=== PATIENT | female | born 1980 | race Caucasian/White ===

== ENCOUNTER 2017-03-14 19:28 | Emergency (ER) | payer BC ==
[~2017-03-14] VITALS: Ht 167.6 cm; Wt 88.5 kg
[2017-03-14 19:28] VITALS: BP 118/68; PULSE 83; RESP 20; TEMP 98.4; O2SAT 100
--- NOTE | 2017-03-14 20:05 | NUR ---
Patient to ER bed 1 to gown for evaluation. Side rails up.
--- NOTE | 2017-03-14 20:10 | NUR ---
Patient alert and oriented x 4. Came in the ER accompanied by family member with complaints of stabbing pain which started around 2-3pm then got worse. Left side of abdomen very tender to touch, denies nausea, vomiting or diarrhea. Denies headache or fever. No acute distress or SOB noted.
--- NOTE | 2017-03-14 20:11 | NUR ---
ER Dr. Zazueta at bedside examining patient.
[2017-03-14 20:12] LABS: BILIRUBIN,URINE NEGATIVE (NEGATIVE); BLOOD, URINE NEGATIVE (NEGATIVE); CLARITY/URINE CLEAR (CLEAR); COLOR,URINE YELLOW (YELLOW); GLUCOSE,URINE NEGATIVE (NEGATIVE); KETONES,URINE NEGATIVE (NEGATIVE); LEUKOCYTE ESTERASE ,URINE 1+ (NEGATIVE); NITRITE, URINE NEGATIVE (NEGATIVE); PROTEIN URINE NEGATIVE (NEGATIVE); UROBILINOGEN,URINE 0.2 (0.2-1.0)
[2017-03-14] MEDS ORDERED: MORPHINE 4 MG/ML INJ. SYRINGE IVP ONE ×2 (20:15→22:00)
[2017-03-14] MEDS ORDERED: NACL 0.9% 1,000 ML IV ONE (20:15)
[2017-03-14] MEDS ORDERED: KETOROLAC TROMETHAMINE 30 MG VIAL IVP ONE (20:15)
[2017-03-14 20:18] LABS: BACTERIA,URINE FEW /HPF (None Seen); MUCUS,URINE None Seen /LPF (None Seen); RBC,URINE NONE SEEN /HPF (0-3)
[2017-03-14 20:57] LABS: BASOPHILS # (AUTO) 0.1 K/uL (0.0-0.2); BASOPHILS % (AUTO) 0.8 % (0.0-2.0); EOSINOPHILS # (AUTO) 0.1 K/uL (0.0-0.4); EOSINOPHILS % (AUTO) 1.5 % (0.0-4.0); HEMATOCRIT 37.2 % (36-48); HEMOGLOBIN 12.5 g/dL (12.0-16.0); LYMPHOCYTES # (AUTO) 2.4 K/uL (1.0-5.5); LYMPHOCYTES % (AUTO) 24.9 % (20.5-51.5); MEAN CORPUSCULAR HEMOGLOBIN 31 pg (27-31); MEAN CORPUSCULAR HGB CONC 34 % (32-36); MEAN CORPUSCULAR VOLUME 92 fL (79.0-98.0); MONOCYTES # (AUTO) 0.6 K/uL (0.0-1.0); MONOCYTES % (AUTO) 6.8 % (1.7-9.3); NEUTROPHILS # (AUTO) 6.3 K/uL (1.8-7.7); PLATELET COUNT (AUTO) 192 K/uL (130-430); RED BLOOD CELL COUNT(AUTO) 4.04 MIL/uL (4.2-6.2); WHITE BLOOD COUNT (AUTO) 9.5 K/uL (4.8-10.8)
[2017-03-14] MEDS ORDERED: cefTRIAXone 1 GM IVPB PREMIX 50 ML IV ONE (21:30)
[2017-03-14 21:43] LABS: ALBUMIN 3.5 g/dL (3.4-4.8); CALCIUM 8.2 mg/dL (8.4-11.0); CREATININE 0.99 mg/dL (0.55-1.30); POTASSIUM 3.8 mmol/L (3.5-5.1); TOTAL BILIRUBIN 0.2 mg/dL (0.0-1.0); TOTAL PROTEIN, SERUM 6.7 g/dL (6.4-8.3)
--- NOTE | 2017-03-14 21:50 | NUR ---
Pt complaining of pain 5/10 at left flank side. VS stable. Will notfiy Dr. Zazueta about Pt's pain level.
[2017-03-14 23:07] VITALS: BP 117/65; PULSE 81; RESP 18; TEMP 98.1; O2SAT 99
--- NOTE | 2017-03-14 23:07 | NUR ---
Patient given written and verbal discharge instructions and verbalizes understanding. ER MD discussed with patient the results and treatment provided. Patient in stable condition. No acute distress or SOB noted upon discharge. ID arm band removed. IV catheter removed intact and dressing applied, no active bleeding. Rx of Cipro and Tramadol given. Patient educated on pain management and to follow up with PMD. Pain Scale 0/10. Opportunity for questions provided and answered.
== END 2017-03-14 23:07 | disposition home or self-care (01) ==
LOC: SED 19:28
DX: N39.0 Urinary tract infection, site not specified (principal); Z85.41 Personal history of malignant neoplasm of cervix uteri; Z91.02 Food additives allergy status; Z88.8 Allergy status to other drugs, medicaments and biological substances; Z90.710 Acquired absence of both cervix and uterus
CPT/HCPCS: 36415; 74176; 80053; 81000; 81025; 85025; 87086; 96361; 96365; 96375; 96376; 99285; J0696; J1885; J2270; J7030

== ENCOUNTER 2017-03-16 22:35 | Emergency (ER) | payer BC ==
[~2017-03-16] VITALS: Ht 167.6 cm; Wt 88.5 kg
[2017-03-16 22:40] VITALS: BP_SYST 120
[2017-03-16 23:04] LABS: BILIRUBIN,URINE NEGATIVE (NEGATIVE); BLOOD, URINE NEGATIVE (NEGATIVE); CLARITY/URINE CLEAR (CLEAR); COLOR,URINE YELLOW (YELLOW); GLUCOSE,URINE NEGATIVE (NEGATIVE); KETONES,URINE NEGATIVE (NEGATIVE); LEUKOCYTE ESTERASE ,URINE TRACE (NEGATIVE); NITRITE, URINE NEGATIVE (NEGATIVE); PH,URINE 6.5 (5.0-8.0); PROTEIN URINE NEGATIVE (NEGATIVE); UROBILINOGEN,URINE 0.2 (0.2-1.0)
[2017-03-16] MEDS ORDERED: NACL 0.9% 1,000 ML IV ONE (23:15)
[2017-03-16] MEDS ORDERED: KETOROLAC TROMETHAMINE 30 MG VIAL IVP ONE (23:15)
[2017-03-16 23:24] LABS: BACTERIA,URINE FEW /HPF (None Seen); MUCUS,URINE None Seen /LPF (None Seen); RBC,URINE 0-3 /HPF (0-3)
[2017-03-16 23:52] LABS: CALCIUM 8.6 mg/dL (8.4-11.0); CREATININE 0.87 mg/dL (0.55-1.30); POTASSIUM 3.8 mmol/L (3.5-5.1)
[2017-03-16 23:55] LABS: BASOPHILS % (AUTO) 0.6 % (0.0-2.0); EOSINOPHILS # (AUTO) 0.1 K/uL (0.0-0.4); EOSINOPHILS % (AUTO) 1.7 % (0.0-4.0); HEMATOCRIT 38.6 % (36-48); HEMOGLOBIN 12.8 g/dL (12.0-16.0); LYMPHOCYTES # (AUTO) 1.9 K/uL (1.0-5.5); LYMPHOCYTES % (AUTO) 29.7 % (20.5-51.5); MEAN CORPUSCULAR HEMOGLOBIN 31 pg (27-31); MEAN CORPUSCULAR HGB CONC 33 % (32-36); MEAN CORPUSCULAR VOLUME 93 fL (79.0-98.0); MONOCYTES # (AUTO) 0.4 K/uL (0.0-1.0); PLATELET COUNT (AUTO) 184 K/uL (130-430); RED BLOOD CELL COUNT(AUTO) 4.17 MIL/uL (4.2-6.2); RED CELL DISTRIBUTION WIDTH 12.8 % (9.0-15.0); WHITE BLOOD COUNT (AUTO) 6.4 K/uL (4.8-10.8)
[2017-03-16 23:57] LABS: ALBUMIN 3.8 g/dL (3.4-4.8); TOTAL BILIRUBIN 0.2 mg/dL (0.0-1.0); TOTAL PROTEIN, SERUM 7.2 g/dL (6.4-8.3)
[2017-03-17 00:39] VITALS: BP_SYST 104
== END 2017-03-17 00:39 | disposition home or self-care (01) ==
LOC: SED 22:35
DX: N23 Unspecified renal colic (principal); N39.0 Urinary tract infection, site not specified; F41.9 Anxiety disorder, unspecified; Z85.41 Personal history of malignant neoplasm of cervix uteri; Z88.6 Allergy status to analgesic agent; Z91.02 Food additives allergy status; R51 Headache
CPT/HCPCS: 36415; 80053; 81000; 81025; 85025; 87086; 96361; 96374; 99283; J1885; J7030

== ENCOUNTER 2018-01-29 14:19 | Emergency (ER) | payer BC, OTHER ==
[~2018-01-29] VITALS: Ht 167.6 cm; Wt 83.9 kg
[2018-01-29 14:28] VITALS: BP_SYST 91
[2018-01-29] MEDS ORDERED: ONDANSETRON HCL 4 MG/2 ML VIAL IVP ONE ×2 (14:45→16:45)
[2018-01-29] MEDS ORDERED: MORPHINE 4 MG/ML INJ. SYRINGE IVP ONE ×2 (14:45→16:45)
[2018-01-29] MEDS ORDERED: NACL 0.9% 1,000 ML IV ONE (14:45)
[2018-01-29 15:16] LABS: BASOPHILS % (AUTO) 0.4 % (0.0-2.0); EOSINOPHILS # (AUTO) 0.1 K/uL (0.0-0.4); EOSINOPHILS % (AUTO) 1.7 % (0.0-4.0); HEMATOCRIT 36.1 % (36-48); HEMOGLOBIN 12.5 g/dL (12.0-16.0); LYMPHOCYTES # (AUTO) 1.8 K/uL (1.0-5.5); LYMPHOCYTES % (AUTO) 27.8 % (20.5-51.5); MEAN CORPUSCULAR HEMOGLOBIN 31 pg (27-31); MEAN CORPUSCULAR HGB CONC 35 % (32-36); MEAN CORPUSCULAR VOLUME 91 fL (79.0-98.0); MONOCYTES # (AUTO) 0.5 K/uL (0.0-1.0); MONOCYTES % (AUTO) 7.6 % (1.7-9.3); NEUTROPHILS % (AUTO) 62.5 % (40.0-70.0); PLATELET COUNT (AUTO) 222 K/uL (130-430); RED BLOOD CELL COUNT(AUTO) 3.98 MIL/uL (4.2-6.2); RED CELL DISTRIBUTION WIDTH 12.4 % (9.0-15.0); WHITE BLOOD COUNT (AUTO) 6.4 K/uL (4.8-10.8)
[2018-01-29 15:30] LABS: INR 0.9 (0.8-1.2); PROTHROMBIN TIME 9.4 SECS (9.5-12.5)
[2018-01-29 15:32] LABS: CALCIUM 8.8 mg/dL (8.4-11.0); CREATININE 0.77 mg/dL (0.55-1.30)
[2018-01-29 15:37] LABS: ALBUMIN 3.7 g/dL (3.4-4.8); TOTAL BILIRUBIN 0.3 mg/dL (0.0-1.0)
[2018-01-29 15:51] LABS: BILIRUBIN,URINE NEGATIVE (NEGATIVE); BLOOD, URINE NEGATIVE (NEGATIVE); CLARITY/URINE CLEAR (CLEAR); COLOR,URINE YELLOW (YELLOW); GLUCOSE,URINE NEGATIVE (NEGATIVE); KETONES,URINE NEGATIVE (NEGATIVE); LEUKOCYTE ESTERASE ,URINE NEGATIVE (NEGATIVE); NITRITE, URINE NEGATIVE (NEGATIVE); PROTEIN URINE NEGATIVE (NEGATIVE); UROBILINOGEN,URINE 0.2 (0.2-1.0)
[2018-01-29 17:40] VITALS: BP_SYST 105
== END 2018-01-29 17:40 | disposition home or self-care (01) ==
LOC: SED 14:19
DX: R10.12 Left upper quadrant pain (principal); R53.83 Other fatigue; Z85.41 Personal history of malignant neoplasm of cervix uteri; Z90.710 Acquired absence of both cervix and uterus; Z88.8 Allergy status to other drugs, medicaments and biological substances; Z91.018 Allergy to other foods
CPT/HCPCS: 36415; 74176; 80053; 81003; 83690; 85025; 85610; 96361; 96374; 96375; 96376; 99285; J2270; J2405; J7030

== ENCOUNTER 2018-02-21 09:29 | Inpatient (IN) | payer OTHER ==
[~2018-02-21] VITALS: Ht 167.6 cm; Wt 85.8 kg
[2018-02-21 09:41] VITALS: BP_SYST 115
[2018-02-21] MEDS ORDERED: NACL 0.9% 1,000 ML IV ONE ×2 (10:00→12:30)
[2018-02-21] MEDS ORDERED: MORPHINE 4 MG/ML INJ. SYRINGE IVP ONE (10:00)
[2018-02-21] MEDS ORDERED: DIPHENHYDRAMINE INJ 50 MG/ML VIAL IVP ONE (10:00)
[2018-02-21 10:20] LABS: BASOPHILS % (AUTO) 0.4 % (0.0-2.0); EOSINOPHILS # (AUTO) 0.1 K/uL (0.0-0.4); EOSINOPHILS % (AUTO) 1.7 % (0.0-4.0); HEMATOCRIT 38.8 % (36-48); HEMOGLOBIN 13.3 g/dL (12.0-16.0); LYMPHOCYTES # (AUTO) 1.8 K/uL (1.0-5.5); LYMPHOCYTES % (AUTO) 29.2 % (20.5-51.5); MEAN CORPUSCULAR HEMOGLOBIN 31 pg (27-31); MEAN CORPUSCULAR HGB CONC 34 % (32-36); MEAN CORPUSCULAR VOLUME 90 fL (79.0-98.0); MONOCYTES # (AUTO) 0.4 K/uL (0.0-1.0); MONOCYTES % (AUTO) 7.2 % (1.7-9.3); NEUTROPHILS # (AUTO) 3.7 K/uL (1.8-7.7); NEUTROPHILS % (AUTO) 61.5 % (40.0-70.0); PLATELET COUNT (AUTO) 203 K/uL (130-430); RED CELL DISTRIBUTION WIDTH 12.4 % (9.0-15.0)
[2018-02-21 10:27] LABS: CALCIUM 9.3 mg/dL (8.4-11.0); CREATININE 0.73 mg/dL (0.55-1.30); POTASSIUM 3.8 mmol/L (3.5-5.1)
[2018-02-21 10:32] LABS: TOTAL BILIRUBIN 0.5 mg/dL (0.0-1.0)
[2018-02-21 10:47] LABS: BILIRUBIN,URINE NEGATIVE (NEGATIVE); BLOOD, URINE NEGATIVE (NEGATIVE); CLARITY/URINE CLEAR (CLEAR); COLOR,URINE YELLOW (YELLOW); GLUCOSE,URINE NEGATIVE (NEGATIVE); KETONES,URINE NEGATIVE (NEGATIVE); LEUKOCYTE ESTERASE ,URINE NEGATIVE (NEGATIVE); NITRITE, URINE NEGATIVE (NEGATIVE); PH,URINE 5.5 (5.0-8.0); PROTEIN URINE NEGATIVE (NEGATIVE); UROBILINOGEN,URINE 0.2 (0.2-1.0)
[2018-02-21] MEDS ORDERED: ONDANSETRON HCL 4 MG/2 ML VIAL IVP ONE ×3 (11:00→13:46)
[2018-02-21] MEDS ORDERED: MAG HYDROX/AL HYDROX/SIMETH 30 ML, BELLADONNA ALKALOIDS/PHENOBARB 10 ML, LIDOCAINE VISC... PO ONE ×3 (11:00)
[2018-02-21] MEDS ORDERED: AMPICILLIN SODIUM/SULBACTAM NA 3 GM VIAL IM ONE (12:30)
[2018-02-21] MEDS ORDERED: ACETAMINOPHEN 325 MG TABLET PO ONE (12:30)
[2018-02-21] MEDS ORDERED: PANTOPRAZOLE SODIUM 40 MG/VIAL (PROTONIX) IVP ONE (12:30)
[2018-02-21] MEDS ORDERED: MORPHINE 2 MG/ML INJ. SYRINGE IVP ONE (12:30)
[2018-02-21] MEDS ORDERED: LORA-975 PO (12:45)
[2018-02-21] MEDS ORDERED: ALPR0.5T96 PO (12:45)
[2018-02-21 13:15] VITALS: BP_SYST 117
[2018-02-21] MEDS ORDERED: SUCCINYLCHOLINE CHLORIDE 20 MG/ML(QUELICIN) IVP ONE (13:46)
[2018-02-21] MEDS ORDERED: ROCURONIUM BROMIDE 10 MG/ML (ZEMURON) IV ONE (13:46)
[2018-02-21] MEDS ORDERED: fentaNYL CITRATE 250 MCG/5 ML AMP IV ONE (13:46)
[2018-02-21] MEDS ORDERED: MIDAZOLAM HCL 5 MG/5 ML VIAL IVP ONE (13:46)
[2018-02-21] MEDS ORDERED: LR 1,000 ML IV.SOLN IV ONE (13:46)
[2018-02-21] MEDS ORDERED: MEPERIDINE HCL/PF 100 MG/ML AMP IM ONE (13:46)
[2018-02-21] MEDS ORDERED: PROPOFOL 200MG/ 20ML VIAL (DIPRIVAN) IV ONE (13:46)
[2018-02-21] MEDS ORDERED: CEFAZOLIN 2 GM IVPB PREMIX 50 ML IV ONE (13:46)
[2018-02-21] MEDS ORDERED: SEVOFLURANE 15 MIN GAS INH ONE (13:46)
[2018-02-21] MEDS ORDERED: NS 1000 ML BAG IV ONE (13:46)
[2018-02-21] MEDS ORDERED: NS IRRIG SOLN 1000 ML IR ONE (13:46)
[2018-02-21] MEDS ORDERED: LIDOCAINE 1% 10 MG/ML, 20 ML MDV INJ ONE (13:46)
[2018-02-21] MEDS ORDERED: ACETAMINOPHEN 325 MG TABLET PO PRN (15:00)
[2018-02-21 16:00] VITALS: BP_SYST 112
[2018-02-21] MEDS: NACL 0.9% 1,000 ML IV SCH (16:04)
[2018-02-21] MEDS: MORPHINE 4 MG/ML INJ. SYRINGE IVP PRN ×2 (16:04→22:11)
[2018-02-21] MEDS: AMPICILLIN SODIUM/SULBACTAM NA 3 GM in NS 100 ML IV SCH ×2 (16:26→22:11)
[2018-02-21 20:00] VITALS: BP_SYST 114
[2018-02-21] MEDS: ONDANSETRON HCL 4 MG/2 ML VIAL IVP PRN (22:10)
[2018-02-21] MEDS: ALPRAZolam 0.25 MG TABLET PO PRN (23:25)
[2018-02-22 00:36] VITALS: BP_SYST 107
[2018-02-22] MEDS: AMPICILLIN SODIUM/SULBACTAM NA 3 GM in NS 100 ML IV SCH ×4 (03:52→21:56)
[2018-02-22] MEDS: NACL 0.9% 1,000 ML IV SCH ×3 (06:51→20:07)
[2018-02-22 08:00] VITALS: BP_SYST 98
[2018-02-22] MEDS: MORPHINE 4 MG/ML INJ. SYRINGE IVP PRN ×2 (09:52→14:39)
[2018-02-22] MEDS: PANTOPRAZOLE SODIUM 40 MG/VIAL (PROTONIX) IVP SCH (09:54)
[2018-02-22 11:30] VITALS: BP_SYST 111
[2018-02-22 15:37] VITALS: BP_SYST 105
[2018-02-22] MEDS: ONDANSETRON HCL 4 MG/2 ML VIAL IVP PRN (15:53)
[2018-02-22 19:50] VITALS: BP_SYST 99
[2018-02-22] MEDS: ALPRAZolam 0.25 MG TABLET PO PRN (21:55)
[2018-02-23 00:04] VITALS: BP_SYST 90
[2018-02-23 04:37] VITALS: BP_SYST 97
[2018-02-23] MEDS: AMPICILLIN SODIUM/SULBACTAM NA 3 GM in NS 100 ML IV SCH ×4 (04:53→22:05)
[2018-02-23 07:10] LABS: PROTHROMBIN TIME 10.4 SECS (9.5-12.5)
[2018-02-23 08:00] VITALS: BP_SYST 98
[2018-02-23] MEDS: NACL 0.9% 1,000 ML IV SCH ×2 (08:16→16:56)
[2018-02-23] MEDS: PANTOPRAZOLE SODIUM 40 MG/VIAL (PROTONIX) IVP SCH (08:16)
[2018-02-23] MEDS ORDERED: SIMETHICONE 40 MG/0.6 ML ML ONE (08:47)
[2018-02-23] MEDS: MIDAZOLAM HCL 5 MG/5 ML VIAL ONE ×4 (08:48→13:34)
[2018-02-23] MEDS ORDERED: MEPERIDINE HCL/PF 100 MG/ML AMP ONE (08:48)
[2018-02-23] MEDS: fentaNYL CITRATE/PF 100 MCG/2 ML AMP ONE ×3 (11:51→13:30)
[2018-02-23 12:01] VITALS: BP_SYST 104
[2018-02-23] MEDS: ONDANSETRON HCL 4 MG/2 ML VIAL IVP PRN (14:45)
[2018-02-23 16:45] VITALS: BP_SYST 107
[2018-02-23 19:58] VITALS: BP_SYST 112
[2018-02-23] MEDS: ALPRAZolam 0.25 MG TABLET PO PRN (22:05)
[2018-02-24 00:10] VITALS: BP_SYST 134
[2018-02-24] MEDS: NACL 0.9% 1,000 ML IV SCH ×2 (01:34→13:18)
[2018-02-24] MEDS: AMPICILLIN SODIUM/SULBACTAM NA 3 GM in NS 100 ML IV SCH ×4 (04:05→21:10)
[2018-02-24 07:24] LABS: BASOPHILS % (AUTO) 0.6 % (0.0-2.0); EOSINOPHILS # (AUTO) 0.2 K/uL (0.0-0.4); EOSINOPHILS % (AUTO) 2.9 % (0.0-4.0); HEMATOCRIT 32.8 % (36-48); HEMOGLOBIN 11.2 g/dL (12.0-16.0); LYMPHOCYTES # (AUTO) 2.1 K/uL (1.0-5.5); MEAN CORPUSCULAR HEMOGLOBIN 31 pg (27-31); MEAN CORPUSCULAR HGB CONC 34 % (32-36); MEAN CORPUSCULAR VOLUME 91 fL (79.0-98.0); MONOCYTES # (AUTO) 0.4 K/uL (0.0-1.0); MONOCYTES % (AUTO) 6.8 % (1.7-9.3); NEUTROPHILS # (AUTO) 3.3 K/uL (1.8-7.7); NEUTROPHILS % (AUTO) 54.7 % (40.0-70.0); PLATELET COUNT (AUTO) 169 K/uL (130-430); RED BLOOD CELL COUNT(AUTO) 3.59 MIL/uL (4.2-6.2); RED CELL DISTRIBUTION WIDTH 12.1 % (9.0-15.0)
[2018-02-24 07:41] LABS: CALCIUM 8.5 mg/dL (8.4-11.0); CREATININE 0.62 mg/dL (0.55-1.30); POTASSIUM 3.7 mmol/L (3.5-5.1); TOTAL BILIRUBIN 0.3 mg/dL (0.0-1.0)
[2018-02-24 08:02] VITALS: BP_SYST 100
[2018-02-24] MEDS: PANTOPRAZOLE SODIUM 40 MG/VIAL (PROTONIX) IVP SCH (09:32)
[2018-02-24 12:30] VITALS: BP_SYST 112
[2018-02-24] MEDS ORDERED: NALOXONE HCL 0.4 MG/ML AMP (NARCAN) IVP ONE (15:30)
[2018-02-24] MEDS ORDERED: ONDANSETRON HCL 4 MG/2 ML VIAL IVP ONE (15:30)
[2018-02-24] MEDS ORDERED: MORPHINE 4 MG/ML INJ. SYRINGE IVP PRN (15:30)
[2018-02-24] MEDS ORDERED: MIDAZOLAM HCL 5 MG/5 ML VIAL IVP PRN (15:30)
[2018-02-24] MEDS ORDERED: MEPERIDINE HCL/PF 25 MG/ML DISP.SYRIN IVP PRN (15:30)
[2018-02-24] MEDS ORDERED: fentaNYL CITRATE/PF 100 MCG/2 ML AMP IVP PRN (15:30)
[2018-02-24] MEDS ORDERED: MIDAZOLAM HCL 2 MG/2 ML VIAL (VERSED) ONE (15:49)
[2018-02-24] MEDS ORDERED: ONDANSETRON HCL 4 MG/2 ML VIAL ONE (15:50)
[2018-02-24] MEDS ORDERED: MEPERIDINE HCL/PF 25 MG/ML DISP.SYRIN ONE (16:10)
[2018-02-24] MEDS ORDERED: METOCLOPRAMIDE HCL 10 MG/2 ML VIAL ONE (16:12)
[2018-02-24] MEDS ORDERED: METOCLOPRAMIDE HCL 10 MG/2 ML VIAL IVP ONE (16:15)
[2018-02-24] MEDS ORDERED: ACETAMINOPHEN 325 MG TABLET PO PRN (16:15)
[2018-02-24] MEDS ORDERED: ONDANSETRON HCL 4 MG/2 ML VIAL IVP PRN (16:15)
[2018-02-24 16:40] VITALS: BP_SYST 121
[2018-02-24] MEDS: MORPHINE 4 MG/ML INJ. SYRINGE IVP PRN (16:57)
[2018-02-24] MEDS: HYDROmorphone 2 MG/ML VIAL IVP PRN (18:56)
[2018-02-24] MEDS ORDERED: KETOROLAC TROMETHAMINE 30 MG VIAL IVP SCH (19:45)
[2018-02-24 20:00] VITALS: BP_SYST 121
[2018-02-24] MEDS: ALPRAZolam 0.25 MG TABLET PO PRN (21:02)
[2018-02-24] MEDS: DIPHENHYDRAMINE INJ 50 MG/ML VIAL IVP PRN (21:03)
[2018-02-25 00:38] VITALS: BP_SYST 111
[2018-02-25] MEDS: HYDROmorphone 2 MG/ML VIAL IVP PRN (02:45)
[2018-02-25] MEDS: AMPICILLIN SODIUM/SULBACTAM NA 3 GM in NS 100 ML IV SCH ×2 (03:11→09:43)
[2018-02-25] MEDS: NACL 0.9% 1,000 ML IV SCH ×2 (03:12→11:55)
[2018-02-25 04:22] VITALS: BP_SYST 104
[2018-02-25 06:56] LABS: BASOPHILS % (AUTO) 0.4 % (0.0-2.0); EOSINOPHILS # (AUTO) 0.1 K/uL (0.0-0.4); EOSINOPHILS % (AUTO) 0.6 % (0.0-4.0); HEMATOCRIT 31.5 % (36-48); HEMOGLOBIN 10.8 g/dL (12.0-16.0); LYMPHOCYTES # (AUTO) 1.7 K/uL (1.0-5.5); LYMPHOCYTES % (AUTO) 17.5 % (20.5-51.5); MEAN CORPUSCULAR HEMOGLOBIN 31 pg (27-31); MEAN CORPUSCULAR HGB CONC 34 % (32-36); MEAN CORPUSCULAR VOLUME 92 fL (79.0-98.0); MONOCYTES # (AUTO) 0.6 K/uL (0.0-1.0); MONOCYTES % (AUTO) 5.8 % (1.7-9.3); NEUTROPHILS # (AUTO) 7.2 K/uL (1.8-7.7); NEUTROPHILS % (AUTO) 75.7 % (40.0-70.0); PLATELET COUNT (AUTO) 170 K/uL (130-430); RED BLOOD CELL COUNT(AUTO) 3.43 MIL/uL (4.2-6.2); WHITE BLOOD COUNT (AUTO) 9.6 K/uL (4.8-10.8)
[2018-02-25 07:15] LABS: ALBUMIN 2.9 g/dL (3.4-4.8); CALCIUM 8.5 mg/dL (8.4-11.0); CREATININE 0.78 mg/dL (0.55-1.30); POTASSIUM 3.3 mmol/L (3.5-5.1); TOTAL BILIRUBIN 0.4 mg/dL (0.0-1.0)
[2018-02-25] MEDS: DIPHENHYDRAMINE INJ 50 MG/ML VIAL IVP PRN (08:33)
[2018-02-25] MEDS: PANTOPRAZOLE SODIUM 40 MG/VIAL (PROTONIX) IVP SCH (08:33)
[2018-02-25] MEDS: HYDROcodone/ACETAMIN 5-325 MG TAB (NORCO/ VICODIN) PO PRN ×2 (08:33→12:53)
[2018-02-25 08:37] VITALS: BP_SYST 132
[2018-02-25] MEDS ORDERED: BISACODYL 10 MG/SUPPOSITORY RC ONE (10:30)
[2018-02-25 12:34] VITALS: BP_SYST 118
[2018-02-25 15:50] VITALS: BP_SYST 119
[2018-02-25 16:24] VITALS: BP_SYST 112
== END 2018-02-25 16:46 | disposition home or self-care (01) | DRG 419 ==
LOC: SED 09:29 → SMU 12:25
PROVIDERS: ADMIT Internal Medicine Hospice and Palliative Medicine; ATTEND Internal Medicine Hospice and Palliative Medicine
PROC: 0DB68ZX Excision of Stomach, Via Natural or Artificial Opening Endoscopic, Diagnostic (ICD-10-PCS; principal; 2018-02-23 12:00)
PROC: 0FT44ZZ Resection of Gallbladder, Percutaneous Endoscopic Approach (ICD-10-PCS; 2018-02-24)
DX: K80.00 Calculus of gallbladder with acute cholecystitis without obstruction (principal); K29.70 Gastritis, unspecified, without bleeding; Z90.710 Acquired absence of both cervix and uterus; Z88.8 Allergy status to other drugs, medicaments and biological substances; Z91.018 Allergy to other foods; Z85.41 Personal history of malignant neoplasm of cervix uteri
CPT/HCPCS: 36415; 43239; 74018; 76700-TC; 78226; 80053; 81003; 81025; 83690-TC; 84703; 85025; 85610-TC; 87045-TC; 87046; 87081; 87177; 88304; 88305; 88312; 88313; 89055; 93005; 96361; 96374; 96375; 99285; A9537; C1727; C9113; J0295; J0330; J0690; J1170; J1200; J2001; J2175; J2250; J2270; J2405; J2704; J2765; J3010; J3465; J7030; J7120

== ENCOUNTER 2018-03-23 18:05 | Emergency (ER) | payer OTHER ==
[~2018-03-23] VITALS: Ht 167.6 cm; Wt 81.6 kg
[2018-03-23 18:05] VITALS: BP_SYST 123
[~2018-03-23 18:05] MED LIST: ALPR0.5T96 PO; LORA-975 PO
[2018-03-23 19:04] LABS: CALCIUM 9.1 mg/dL (8.4-11.0); CREATININE 0.69 mg/dL (0.55-1.30); POTASSIUM 3.8 mmol/L (3.5-5.1)
[2018-03-23 19:06] LABS: BILIRUBIN,URINE NEGATIVE (NEGATIVE); BLOOD, URINE NEGATIVE (NEGATIVE); CLARITY/URINE CLEAR (CLEAR); COLOR,URINE YELLOW (YELLOW); GLUCOSE,URINE NEGATIVE (NEGATIVE); KETONES,URINE NEGATIVE (NEGATIVE); LEUKOCYTE ESTERASE ,URINE NEGATIVE (NEGATIVE); NITRITE, URINE NEGATIVE (NEGATIVE); PH,URINE 6.5 (5.0-8.0); PROTEIN URINE NEGATIVE (NEGATIVE); UROBILINOGEN,URINE 0.2 (0.2-1.0)
[2018-03-23 19:10] LABS: ALBUMIN 4.2 g/dL (3.4-4.8); TOTAL BILIRUBIN 0.3 mg/dL (0.0-1.0)
[2018-03-23 19:12] LABS: BASOPHILS % (AUTO) 0.6 % (0.0-2.0); EOSINOPHILS # (AUTO) 0.3 K/uL (0.0-0.4); EOSINOPHILS % (AUTO) 4.9 % (0.0-4.0); HEMATOCRIT 36.7 % (36-48); HEMOGLOBIN 12.3 g/dL (12.0-16.0); LYMPHOCYTES # (AUTO) 1.9 K/uL (1.0-5.5); LYMPHOCYTES % (AUTO) 31.9 % (20.5-51.5); MEAN CORPUSCULAR HEMOGLOBIN 31 pg (27-31); MEAN CORPUSCULAR HGB CONC 34 % (32-36); MEAN CORPUSCULAR VOLUME 91 fL (79.0-98.0); MONOCYTES # (AUTO) 0.3 K/uL (0.0-1.0); MONOCYTES % (AUTO) 5.6 % (1.7-9.3); NEUTROPHILS # (AUTO) 3.4 K/uL (1.8-7.7); PLATELET COUNT (AUTO) 231 K/uL (130-430); RED BLOOD CELL COUNT(AUTO) 4.04 MIL/uL (4.2-6.2); RED CELL DISTRIBUTION WIDTH 12.1 % (9.0-15.0); WHITE BLOOD COUNT (AUTO) 5.9 K/uL (4.8-10.8)
[2018-03-23 19:50] VITALS: BP_SYST 100
== END 2018-03-23 19:50 | disposition home or self-care (01) ==
LOC: SED 18:05
DX: K59.00 Constipation, unspecified (principal); M25.512 Pain in left shoulder; R03.0 Elevated blood-pressure reading, without diagnosis of hypertension; Z90.49 Acquired absence of other specified parts of digestive tract; Z85.41 Personal history of malignant neoplasm of cervix uteri; Z91.018 Allergy to other foods
CPT/HCPCS: 36415; 71045; 80053; 81003; 85025; 85379; 99285

== ENCOUNTER 2019-12-15 09:24 | Inpatient (IN) | payer OTHER ==
[~2019-12-15] VITALS: Ht 167.6 cm; Wt 90.7 kg
[~2019-12-15 09:24] MED LIST changes: +ALPR0.5T PO; -ALPR0.5T96 PO; +LORA-1079 PO; -LORA-975 PO
[2019-12-15 09:28] VITALS: BP_SYST 97
[2019-12-15] MEDS ORDERED: ONDANSETRON HCL 4 MG/2 ML VIAL IVP ONE ×2 (10:45→12:15)
[2019-12-15] MEDS ORDERED: MORPHINE 4 MG/ML INJ. SYRINGE IVP ONE ×2 (10:45→14:30)
[2019-12-15 11:13] LABS: BASOPHILS % (AUTO) 0.5 % (0.0-2.0); EOSINOPHILS # (AUTO) 0.1 K/uL (0.0-0.4); EOSINOPHILS % (AUTO) 2.5 % (0.0-4.0); HEMATOCRIT 38.5 % (36-48); HEMOGLOBIN 12.8 g/dL (12.0-16.0); LYMPHOCYTES # (AUTO) 1.5 K/uL (1.0-5.5); LYMPHOCYTES % (AUTO) 27.2 % (20.5-51.5); MEAN CORPUSCULAR HEMOGLOBIN 31 pg (27-31); MEAN CORPUSCULAR HGB CONC 33 % (32-36); MEAN CORPUSCULAR VOLUME 93 fL (79.0-98.0); MONOCYTES # (AUTO) 0.4 K/uL (0.0-1.0); MONOCYTES % (AUTO) 7.1 % (1.7-9.3); NEUTROPHILS # (AUTO) 3.5 K/uL (1.8-7.7); NEUTROPHILS % (AUTO) 62.7 % (40.0-70.0); PLATELET COUNT (AUTO) 228 K/uL (130-430); RED BLOOD CELL COUNT(AUTO) 4.14 MIL/uL (4.2-6.2); RED CELL DISTRIBUTION WIDTH 13.1 % (9.0-15.0); WHITE BLOOD COUNT (AUTO) 5.6 K/uL (4.8-10.8)
[2019-12-15 11:18] LABS: CALCIUM 8.9 mg/dL (8.4-11.0); CREATININE 0.67 mg/dL (0.55-1.30); POTASSIUM 4.4 mmol/L (3.5-5.1)
[2019-12-15 11:23] LABS: ALBUMIN 3.7 g/dL (3.4-4.8); TOTAL BILIRUBIN 0.3 mg/dL (0.0-1.0)
[2019-12-15] MEDS ORDERED: ONDANSETRON HCL 4 MG/2 ML VIAL ONE (12:22)
[2019-12-15 12:28] LABS: BILIRUBIN,URINE NEGATIVE (NEGATIVE); BLOOD, URINE NEGATIVE (NEGATIVE); CLARITY/URINE CLEAR (CLEAR); COLOR,URINE YELLOW (YELLOW); GLUCOSE,URINE NEGATIVE (NEGATIVE); KETONES,URINE NEGATIVE (NEGATIVE); LEUKOCYTE ESTERASE ,URINE NEGATIVE (NEGATIVE); NITRITE, URINE NEGATIVE (NEGATIVE); PH,URINE 7.5 (5.0-8.0); PROTEIN URINE NEGATIVE (NEGATIVE); UROBILINOGEN,URINE 0.2 (0.2-1.0)
[2019-12-15] MEDS ORDERED: LEVOFLOXACIN 500 MG/D5W 100 ML IV ONE (14:30)
[2019-12-15] MEDS ORDERED: metroNIDAZOLE 500 mg/NS 100 ML IV ONE (14:30)
[2019-12-15] MEDS: NACL 0.9% 1,000 ML IV SCH (16:00)
[2019-12-15] MEDS ORDERED: METOCLOPRAMIDE HCL 10 MG/2 ML VIAL IVP PRN (16:45)
[2019-12-15] MEDS ORDERED: ACETAMINOPHEN 325 MG TABLET PO PRN (16:45)
[2019-12-15] MEDS: LEVOFLOXACIN 500 MG/D5W 100 ML IV SCH (17:13)
[2019-12-15] MEDS: D5NS 1,000 ML IV SCH (17:13)
[2019-12-15 17:16] VITALS: BP_SYST 119
[2019-12-15 17:23] VITALS: BP_SYST 119
[2019-12-15] MEDS: MORPHINE 4 MG/ML INJ. SYRINGE IVP PRN (18:19)
[2019-12-15] MEDS: ONDANSETRON HCL 4 MG/2 ML VIAL IVP PRN (18:19)
[2019-12-15] MEDS: MORPHINE 2 MG/ML INJ. SYRINGE IVP PRN (20:11)
[2019-12-16] MEDS: D5NS 1,000 ML IV SCH ×3 (00:39→15:19)
[2019-12-16] MEDS: MORPHINE 4 MG/ML INJ. SYRINGE IVP PRN ×4 (02:06→21:07)
[2019-12-16] MEDS: ONDANSETRON HCL 4 MG/2 ML VIAL IVP PRN ×4 (02:06→21:05)
[2019-12-16] MEDS: NACL 0.9% 1,000 ML IV SCH (03:32)
[2019-12-16 06:04] VITALS: BP_SYST 99
[2019-12-16 08:00] VITALS: BP_SYST 111
[2019-12-16] MEDS ORDERED: LACTULOSE 20 GM/30 ML UDC PO ONE (09:15)
[2019-12-16] MEDS: MORPHINE 2 MG/ML INJ. SYRINGE IVP PRN ×2 (09:37→15:59)
[2019-12-16 11:21] VITALS: BP_SYST 107
[2019-12-16] MEDS: LEVOFLOXACIN 500 MG/D5W 100 ML IV SCH (18:28)
[2019-12-17] VITALS (7 sets, daily range): BP systolic 97–113
[2019-12-17] MEDS: D5NS 1,000 ML IV SCH ×3 (00:39→20:04)
[2019-12-17] MEDS: MORPHINE 4 MG/ML INJ. SYRINGE IVP PRN ×3 (05:50→20:03)
[2019-12-17] MEDS: ONDANSETRON HCL 4 MG/2 ML VIAL IVP PRN ×3 (05:51→20:03)
[2019-12-17 06:34] LABS: BASOPHILS % (AUTO) 0.5 % (0.0-2.0); EOSINOPHILS # (AUTO) 0.2 K/uL (0.0-0.4); EOSINOPHILS % (AUTO) 2.9 % (0.0-4.0); HEMATOCRIT 34.4 % (36-48); HEMOGLOBIN 11.6 g/dL (12.0-16.0); LYMPHOCYTES # (AUTO) 1.4 K/uL (1.0-5.5); LYMPHOCYTES % (AUTO) 26.2 % (20.5-51.5); MEAN CORPUSCULAR HEMOGLOBIN 31 pg (27-31); MEAN CORPUSCULAR HGB CONC 34 % (32-36); MEAN CORPUSCULAR VOLUME 93 fL (79.0-98.0); MONOCYTES # (AUTO) 0.4 K/uL (0.0-1.0); MONOCYTES % (AUTO) 6.7 % (1.7-9.3); NEUTROPHILS # (AUTO) 3.4 K/uL (1.8-7.7); NEUTROPHILS % (AUTO) 63.7 % (40.0-70.0); PLATELET COUNT (AUTO) 199 K/uL (130-430); RED CELL DISTRIBUTION WIDTH 13.1 % (9.0-15.0); WHITE BLOOD COUNT (AUTO) 5.4 K/uL (4.8-10.8)
[2019-12-17 06:47] LABS: CALCIUM 8.2 mg/dL (8.4-11.0); CREATININE 0.58 mg/dL (0.55-1.30); TOTAL BILIRUBIN 0.5 mg/dL (0.0-1.0)
[2019-12-17 07:03] LABS: INR 1.1 (0.8-1.2); PROTHROMBIN TIME 10.6 SECS (9.5-12.5)
[2019-12-17] MEDS: FAMOTIDINE PF 20 MG/2 ML VIAL IVP SCH ×3 (09:21→22:37)
[2019-12-17] MEDS: POLYETHYLENE GLYCOL 3350, 17 GM/ POWD.PACK PO SCH (09:21)
[2019-12-17] MEDS: MORPHINE 2 MG/ML INJ. SYRINGE IVP PRN (10:10)
[2019-12-17] MEDS ORDERED: metroNIDAZOLE 500 mg/NS 100 ML IV ONE (13:30)
[2019-12-17] MEDS: cefTRIAXone 1 GM in D5W 50 ML IV SCH (14:34)
[2019-12-17] MEDS ORDERED: SIMETHICONE 40 MG/0.6 ML ML ONE (15:57)
[2019-12-17] MEDS: MIDAZOLAM HCL 5 MG/5 ML VIAL ONE ×4 (16:59→17:11)
[2019-12-17] MEDS: fentaNYL CITRATE/PF 100 MCG/2 ML AMP ONE ×3 (16:59→17:08)
[2019-12-17] MEDS ORDERED: DICYCLOMINE HCL 10 MG/5 ML SOLUTION PO ONE (17:30)
[2019-12-17] MEDS: metroNIDAZOLE 500 mg/NS 100 ML IV SCH (22:05)
[2019-12-18] VITALS: BP_SYST 112
[2019-12-18] MEDS: D5NS 1,000 ML IV SCH ×3 (00:39→22:15)
[2019-12-18 01:32] VITALS: BP_SYST 113
[2019-12-18 06:17] LABS: CALCIUM 8.1 mg/dL (8.4-11.0); CREATININE 0.71 mg/dL (0.55-1.30); POTASSIUM 3.8 mmol/L (3.5-5.1); TOTAL BILIRUBIN 0.3 mg/dL (0.0-1.0)
[2019-12-18] MEDS: metroNIDAZOLE 500 mg/NS 100 ML IV SCH ×3 (06:34→22:15)
[2019-12-18] MEDS: DICYCLOMINE HCL 10 MG/5 ML SOLUTION PO SCH ×3 (06:36→17:47)
[2019-12-18 06:41] LABS: BASOPHILS % (AUTO) 0.4 % (0.0-2.0); EOSINOPHILS # (AUTO) 0.2 K/uL (0.0-0.4); EOSINOPHILS % (AUTO) 3.8 % (0.0-4.0); HEMATOCRIT 34.6 % (36-48); HEMOGLOBIN 11.5 g/dL (12.0-16.0); LYMPHOCYTES # (AUTO) 1.8 K/uL (1.0-5.5); LYMPHOCYTES % (AUTO) 32.8 % (20.5-51.5); MEAN CORPUSCULAR HEMOGLOBIN 31 pg (27-31); MEAN CORPUSCULAR HGB CONC 33 % (32-36); MEAN CORPUSCULAR VOLUME 93 fL (79.0-98.0); MONOCYTES # (AUTO) 0.5 K/uL (0.0-1.0); MONOCYTES % (AUTO) 8.4 % (1.7-9.3); NEUTROPHILS % (AUTO) 54.6 % (40.0-70.0); PLATELET COUNT (AUTO) 195 K/uL (130-430); RED BLOOD CELL COUNT(AUTO) 3.72 MIL/uL (4.2-6.2); RED CELL DISTRIBUTION WIDTH 12.9 % (9.0-15.0); WHITE BLOOD COUNT (AUTO) 5.5 K/uL (4.8-10.8)
[2019-12-18] MEDS: MORPHINE 4 MG/ML INJ. SYRINGE IVP PRN ×4 (07:04→22:16)
[2019-12-18] MEDS: ONDANSETRON HCL 4 MG/2 ML VIAL IVP PRN ×4 (07:05→22:27)
[2019-12-18] MEDS: FAMOTIDINE PF 20 MG/2 ML VIAL IVP SCH ×2 (09:25→22:15)
[2019-12-18] MEDS: POLYETHYLENE GLYCOL 3350, 17 GM/ POWD.PACK PO SCH (09:25)
[2019-12-18] MEDS: MORPHINE 2 MG/ML INJ. SYRINGE IVP PRN (09:32)
[2019-12-18] MEDS: cefTRIAXone 1 GM in D5W 50 ML IV SCH (12:20)
[2019-12-18 12:32] VITALS: BP_SYST 104
[2019-12-18] MEDS ORDERED: HYDROcodone/ACETAMIN 5-325 MG TAB (NORCO/ VICODIN) PO PRN (13:45)
[2019-12-18 16:27] VITALS: BP_SYST 95
[2019-12-18 21:02] VITALS: BP_SYST 112
[2019-12-18 23:57] VITALS: BP_SYST 101
[2019-12-19 06:06] LABS: HEPATITIS B CORE AB, IgM Negative (Negative)
[2019-12-19] MEDS: D5NS 1,000 ML IV SCH ×3 (06:48→17:34)
[2019-12-19] MEDS: metroNIDAZOLE 500 mg/NS 100 ML IV SCH ×3 (06:48→21:15)
[2019-12-19] MEDS: DICYCLOMINE HCL 10 MG/5 ML SOLUTION PO SCH ×3 (06:48→17:34)
[2019-12-19 08:00] VITALS: BP_SYST 108
[2019-12-19] MEDS: ONDANSETRON HCL 4 MG/2 ML VIAL IVP PRN ×3 (08:10→19:59)
[2019-12-19] MEDS: MORPHINE 4 MG/ML INJ. SYRINGE IVP PRN ×3 (08:11→20:00)
[2019-12-19] MEDS: FAMOTIDINE PF 20 MG/2 ML VIAL IVP SCH ×2 (09:00→21:15)
[2019-12-19] MEDS: POLYETHYLENE GLYCOL 3350, 17 GM/ POWD.PACK PO SCH (09:00)
[2019-12-19 12:00] VITALS: BP_SYST 98
[2019-12-19] MEDS: cefTRIAXone 1 GM in D5W 50 ML IV SCH (13:02)
[2019-12-19 16:00] VITALS: BP_SYST 105
[2019-12-19 20:11] VITALS: BP_SYST 117
[2019-12-19 23:52] VITALS: BP_SYST 112
[2019-12-20] MEDS: D5NS 1,000 ML IV SCH ×4 (00:25→22:04)
[2019-12-20] MEDS: MORPHINE 4 MG/ML INJ. SYRINGE IVP PRN ×5 (00:25→21:34)
[2019-12-20] MEDS: DICYCLOMINE HCL 10 MG/5 ML SOLUTION PO SCH ×3 (06:13→17:08)
[2019-12-20] MEDS: metroNIDAZOLE 500 mg/NS 100 ML IV SCH ×3 (06:13→20:43)
[2019-12-20 08:00] VITALS: BP_SYST 101
[2019-12-20] MEDS: POLYETHYLENE GLYCOL 3350, 17 GM/ POWD.PACK PO SCH (08:03)
[2019-12-20] MEDS: FAMOTIDINE PF 20 MG/2 ML VIAL IVP SCH (08:07)
[2019-12-20] MEDS: ONDANSETRON HCL 4 MG/2 ML VIAL IVP PRN ×3 (08:11→22:13)
[2019-12-20 09:29] LABS: HEPATITIS A AB, IgM Negative (Negative)
[2019-12-20 12:00] VITALS: BP_SYST 106
[2019-12-20 12:07] LABS: ALBUMIN 3.7 g/dL (3.4-4.8); BILIRUBIN,DIRECT 0.1 mg/dL (0.0-0.3); TOTAL BILIRUBIN 0.2 mg/dL (0.0-1.0)
[2019-12-20] MEDS: cefTRIAXone 1 GM in D5W 50 ML IV SCH (12:23)
[2019-12-20 16:00] VITALS: BP_SYST 119
[2019-12-20] MEDS: SUCRALFATE 1 GM TABLET PO SCH (17:08)
[2019-12-20 19:00] VITALS: BP_SYST 124
[2019-12-20 20:00] VITALS: BP_SYST 124
[2019-12-20] MEDS ORDERED: TEMAZEPAM 15 MG CAPSULE PO PRN (21:15)
[2019-12-21 00:24] VITALS: BP_SYST 106
[2019-12-21] MEDS: metroNIDAZOLE 500 mg/NS 100 ML IV SCH (05:49)
[2019-12-21] MEDS: D5NS 1,000 ML IV SCH (05:50)
[2019-12-21] MEDS: SUCRALFATE 1 GM TABLET PO SCH (05:53)
[2019-12-21] MEDS: DICYCLOMINE HCL 10 MG/5 ML SOLUTION PO SCH ×2 (05:53→11:07)
[2019-12-21 08:00] VITALS: BP_SYST 100
[2019-12-21] MEDS: POLYETHYLENE GLYCOL 3350, 17 GM/ POWD.PACK PO SCH (08:07)
[2019-12-21] MEDS ORDERED: PANTOPRAZOLE SODIUM 40 MG TAB PO SCH (09:00)
[2019-12-21] MEDS: ONDANSETRON HCL 4 MG/2 ML VIAL IVP PRN (09:33)
[2019-12-21] MEDS: MORPHINE 4 MG/ML INJ. SYRINGE IVP PRN (09:34)
[2019-12-21 10:50] VITALS: BP_SYST 117
[2019-12-21] MEDS ORDERED: METR500T PO (11:52)
[2019-12-21] MEDS ORDERED: PRO40 PO (11:53)
[2019-12-21 12:00] VITALS: BP_SYST 117
== END 2019-12-21 17:00 | disposition home or self-care (01) | DRG 392 ==
LOC: SED 09:24 → SMU 15:21 → OBSVTOIN 12-17 07:44
PROVIDERS: ADMIT Internal Medicine Hospice and Palliative Medicine; ATTEND Internal Medicine Hospice and Palliative Medicine
PROC: 0DB98ZX Excision of Duodenum, Via Natural or Artificial Opening Endoscopic, Diagnostic (ICD-10-PCS; 2019-12-17)
PROC: 0DB68ZX Excision of Stomach, Via Natural or Artificial Opening Endoscopic, Diagnostic (ICD-10-PCS; principal; 2019-12-17 16:30)
DX: K29.70 Gastritis, unspecified, without bleeding (principal); B15.9 Hepatitis A without hepatic coma; K52.9 Noninfective gastroenteritis and colitis, unspecified; Z96.652 Presence of left artificial knee joint; F41.9 Anxiety disorder, unspecified; K59.00 Constipation, unspecified; Z80.3 Family history of malignant neoplasm of breast; Z85.41 Personal history of malignant neoplasm of cervix uteri; Z90.710 Acquired absence of both cervix and uterus; Z90.49 Acquired absence of other specified parts of digestive tract; Z88.8 Allergy status to other drugs, medicaments and biological substances; Z91.018 Allergy to other foods; Z79.899 Other long term (current) drug therapy
CPT/HCPCS: 36415; 43239; 74181; 76700-TC; 80053; 80076; 81003; 85025; 85610-TC; 85651-TC; 86705; 86709; 86753; 87040-TC; 87177; 87207; 88305; 88312; 88313; 96365; 96367; 96375; 96376; 99285; G0378; J0696; J1956; J2250; J2270; J2405; J2765; J3010; J3490; J7030; J7042; J7060

== ENCOUNTER 2021-04-16 12:36 | Emergency (ER) | payer BC, OTHER ==
[~2021-04-16] VITALS: Ht 167.6 cm; Wt 81.6 kg
[~2021-04-16 12:36] MED LIST changes: +METR500T PO; +PRO40 PO
[2021-04-16 12:51] VITALS: BP_SYST 115
[2021-04-16] MEDS ORDERED: DIPHENHYDRAMINE INJ 50 MG/ML VIAL IVP ONE (13:15)
[2021-04-16] MEDS ORDERED: MORPHINE 4 MG INJ. 4 MG/ML VIAL IVP ONE (13:15)
[2021-04-16] MEDS ORDERED: NACL 0.9% 1,000 ML IV ONE (13:15)
[2021-04-16] MEDS ORDERED: ONDANSETRON HCL 4 MG/2 ML VIAL IVP ONE ×2 (13:15→14:30)
[2021-04-16 13:18] LABS: BASOPHILS % (AUTO) 0.8 % (0.0-2.0); EOSINOPHILS # (AUTO) 0.1 K/uL (0.0-0.4); EOSINOPHILS % (AUTO) 2.2 % (0.0-4.0); HEMOGLOBIN 12.9 g/dL (12.0-16.0); LYMPHOCYTES # (AUTO) 1.8 K/uL (1.0-5.5); LYMPHOCYTES % (AUTO) 32.7 % (20.5-51.5); MEAN CORPUSCULAR HEMOGLOBIN 31 pg (27-31); MEAN CORPUSCULAR HGB CONC 34 % (32-36); MEAN CORPUSCULAR VOLUME 92 fL (79.0-98.0); MONOCYTES # (AUTO) 0.4 K/uL (0.0-1.0); MONOCYTES % (AUTO) 7.5 % (1.7-9.3); NEUTROPHILS # (AUTO) 3.2 K/uL (1.8-7.7); NEUTROPHILS % (AUTO) 56.8 % (40.0-70.0); PLATELET COUNT (AUTO) 181 K/uL (130-430); RED BLOOD CELL COUNT(AUTO) 4.15 MIL/uL (4.2-6.2); RED CELL DISTRIBUTION WIDTH 13.7 % (9.0-15.0); WHITE BLOOD COUNT (AUTO) 5.6 K/uL (4.8-10.8)
[2021-04-16 13:22] LABS: BILIRUBIN,URINE NEGATIVE (NEGATIVE); BLOOD, URINE NEGATIVE (NEGATIVE); CLARITY/URINE CLEAR (CLEAR); COLOR,URINE YELLOW (YELLOW); GLUCOSE,URINE NEGATIVE (NEGATIVE); KETONES,URINE NEGATIVE (NEGATIVE); LEUKOCYTE ESTERASE ,URINE NEGATIVE (NEGATIVE); NITRITE, URINE NEGATIVE (NEGATIVE); PH,URINE 6.5 (5.0-8.0); PROTEIN URINE NEGATIVE (NEGATIVE); UROBILINOGEN,URINE 0.2 (0.2-1.0)
[2021-04-16 13:38] LABS: CALCIUM 8.7 mg/dL (8.4-11.0); CREATININE 0.77 mg/dL (0.55-1.30); POTASSIUM 3.8 mmol/L (3.5-5.1)
[2021-04-16 13:42] LABS: INR 0.9 (0.8-1.2); PROTHROMBIN TIME 9.6 SECS (9.5-12.5)
[2021-04-16 13:44] LABS: ALBUMIN 3.7 g/dL (3.4-4.8); TOTAL BILIRUBIN 0.5 mg/dL (0.0-1.0)
[2021-04-16] MEDS ORDERED: MAG HYDROX/AL HYDROX/SIMETH 30 ML, DICYCLOMINE HCL 20 MG, LIDOCAINE VISCOUS 2% 15ML (PO... PO ONE ×3 (14:30)
[2021-04-16] MEDS ORDERED: MORPHINE 2 MG/ML INJ. SYRINGE IVP ONE (14:30)
[2021-04-16] MEDS ORDERED: LIDOCAINE VISCOUS 2%, 15 ML UDC ONE (14:43)
[2021-04-16] MEDS ORDERED: TRAM50TA PO (15:01)
[2021-04-16 15:04] VITALS: BP_SYST 118
== END 2021-04-16 15:20 | disposition home or self-care (01) ==
LOC: SED 12:36
DX: R10.31 Right lower quadrant pain (principal); Z88.8 Allergy status to other drugs, medicaments and biological substances; Z79.899 Other long term (current) drug therapy
CPT/HCPCS: 36415; 74176; 76376; 80053; 81003; 83690; 85025; 85610; 85730; 96361; 96374; 96375; 96376; 99284; J1200; J2001; J2270 ×2; J2405; J7030

== ENCOUNTER 2023-01-17 17:02 | Emergency (ER) | payer BC ==
[~2023-01-17] VITALS: Ht 172.7 cm; Wt 86.2 kg
[~2023-01-17 17:02] MED LIST changes: +TRAM50TA PO
[2023-01-17] MEDS ORDERED: ONDANSETRON HCL 4 MG/2 ML VIAL IVP ONE (17:10)
[2023-01-17] MEDS ORDERED: ONDANSETRON HCL 4 MG/2 ML VIAL ONE (17:11)
[2023-01-17 17:12] VITALS: BP_SYST 157
[2023-01-17] MEDS ORDERED: DIPHENHYDRAMINE INJ 50 MG/ML VIAL IVP ONE (17:15)
[2023-01-17] MEDS ORDERED: FAMOTIDINE PF 20 MG/2 ML VIAL IVP ONE (17:15)
[2023-01-17] MEDS ORDERED: EPINEPHRINE HCL/PF 1 MG/ML AMP IM ONE (17:15)
[2023-01-17] MEDS ORDERED: IPRATROPIUM BROM 0.5 MG/2.5 ML VIAL.NEB (ATROVENT) INH ONE (17:30)
[2023-01-17] MEDS ORDERED: ALBUTEROL SULFATE 0.083% 2.5 MG/3 ML VIAL.NEB INH ONE (17:30)
[2023-01-17] MEDS ORDERED: EPIN0.3P3 IM (18:28)
[2023-01-17] MEDS ORDERED: DIPH25CA83 PO (18:28)
[2023-01-17 18:45] VITALS: BP_SYST 99
== END 2023-01-17 18:45 | disposition home or self-care (01) ==
LOC: SED 17:02
DX: T78.04XA Anaphylactic reaction due to fruits and vegetables, initial encounter (principal); R22.0 Localized swelling, mass and lump, head; R06.02 Shortness of breath; R11.10 Vomiting, unspecified; Z91.018 Allergy to other foods; Z88.6 Allergy status to analgesic agent; Z79.899 Other long term (current) drug therapy
CPT/HCPCS: 99291; 96374; 96375; 94640; 94760; 96372; J1200; J3490; J2405